=== PATIENT | male | born 1940 | race Caucasian/White ===

== ENCOUNTER 2022-06-04 13:01 | Inpatient (IN) | payer MEDICARE, OTHER ==
[~2022-06-04] VITALS: Ht 170.2 cm; Wt 55.3 kg
[2022-06-04 14:12] LABS: HEMATOCRIT. 36.8 % (42.0-52.0); HEMOGLOBIN. 12.3 g/dL (14.0-18.0); MEAN CORPUSCULAR HEMOGLOBIN 31.5 pg (28.0-32.0); MEAN CORPUSCULAR VOLUME 94.5 fL (80.0-94.0); MEAN PLATELET VOLUME 6.7 fl (7.4-10.4); PLATELET 237 x1000/uL (130-400); RED BLOOD CELL COUNT 3.89 mill/uL (4.7-6.1); RED CELL DISTRIBUTION WIDTH 16.2 % (11.6-14.6)
[2022-06-04 14:16] LABS: CHLORIDE 93 mEq/L (98-107)
[2022-06-04 16:26] LABS: PLATELET ESTIMATE NORMAL
[2022-06-04] MEDS ORDERED: GUAIFENESIN 200MG/10ML SUGAR FREE UDC PO PRN (17:45)
[2022-06-04] MEDS ORDERED: MAGNESIUM/ALUMINUM HYDROXIDE/SIMETHICONE 30ML UDC PO PRN (17:45)
[2022-06-04] MEDS ORDERED: ACETAMINOPHEN 325MG TABLET PO PRN (17:45)
[2022-06-04] MEDS ORDERED: ONDANSETRON HCL 4MG/2ML INJ IV PRN (17:45)
[2022-06-04] MEDS ORDERED: ACETAMINOPHEN 650MG/20.3ML UDC GT PRN (17:45)
[2022-06-04] MEDS ORDERED: CLONIDINE 0.1MG TABLET PO PRN (17:45)
[2022-06-04] MEDS ORDERED: DOCUSATE SODIUM 100MG CAPSULE PO PRN (17:45)
[2022-06-04] MEDS ORDERED: IPRATROPIUM/ALBUTEROL 0.5-3(2.5)MG/3ML NEB HHN PRN (17:45)
[2022-06-04] MEDS ORDERED: HYDROCODONE/ACETAMINOPHEN 5/325MG TABLET PO PRN (17:45)
[2022-06-04] MEDS ORDERED: NALOXONE HCL 0.4MG/ML VIAL IV PRN (19:00)
[2022-06-04 20:00] VITALS: BP 117/62
[2022-06-04] MEDS ORDERED: ENOXAPARIN 40MG/0.4ML SYR SUBCUT SCH (20:00)
[2022-06-04 21:13] VITALS: BP 117/83
[2022-06-04] MEDS ORDERED: IOHEXOL-350 100 ML BOTTLE ONE (21:24)
[2022-06-04 22:00] VITALS: BP 125/72
[2022-06-05] VITALS (11 sets, daily range): BP systolic 101–126; BP diastolic 52–65
[2022-06-05 00:10] LABS: CLARITY URINE CLEAR (CLEAR); COLOR URINE YELLOW (YELLOW); KETONES URINE NEGATIVE (NEGATIVE); LEUKOCYTE ESTERASE URINE NEGATIVE (NEGATIVE); NITRITE URINE NEGATIVE (NEGATIVE); OCCULT BLOOD URINE NEGATIVE (NEGATIVE); PROTEIN URINE TRACE (NEGATIVE); SPECIFIC GRAVITY URINE 1.064 (1.005-1.030)
[2022-06-05 06:38] LABS: HEMATOCRIT. 35.5 % (42.0-52.0); HEMOGLOBIN. 11.8 g/dL (14.0-18.0); MEAN CORPUSCULAR HEMOGLOBIN 31.5 pg (28.0-32.0); MEAN CORPUSCULAR VOLUME 94.8 fL (80.0-94.0); MEAN PLATELET VOLUME 6.8 fl (7.4-10.4); PLATELET 202 x1000/uL (130-400); RED BLOOD CELL COUNT 3.75 mill/uL (4.7-6.1); RED CELL DISTRIBUTION WIDTH 16.4 % (11.6-14.6)
[2022-06-05 06:45] LABS: CHLORIDE 92 mEq/L (98-107)
[2022-06-05 07:01] LABS: CREATINE KINASE 54 IU/L (39-308); HDL CHOLESTEROL 32 mg/dL (40-59); LDL CHOLESTEROL 121 mg/dL (5-100)
[2022-06-05] MEDS ORDERED: AMLO5TAB4 MT (07:43)
[2022-06-05] MEDS ORDERED: GABA-532 MT (07:46)
[2022-06-05] MEDS ORDERED: AMOX-405 MT (07:46)
[2022-06-05] MEDS ORDERED: APIX5TAB MT (07:46)
[2022-06-05 11:31] LABS: BG BASE EXCESS 11.3 mmol/L (-2.0-2.0); BG CARBOXYHEMOGLOBIN 0.1 % (0.5-1.5); BG DEOXYHEMOGLOBIN 4.5 % (0.0-5.0); BG HCO3 ACT 38.6 mmol/L (22.0-26.0); BG METHEMOGLOBIN 0.2 % (0.0-1.5); BG OXYGEN SATURATION 95.5 % (92.0-98.5); BG OXYHEMOGLOBIN 95.2 % (94.0-97.0); BG PCO2 63.6 mmHg (35.0-45.0); BG PH 7.401 (7.350-7.450); BG PO2 78.9 mmHg (75.0-100.0); BG SAMPLE SITE RIGHT RADIAL; BG VENT MODE MASK - BIPAP
[2022-06-05 13:37] LABS: INR 1.2; PROTHROMBIN TIME 12.4 sec (9.6-11.0)
[2022-06-05] MEDS: PIPERACILLIN/TAZOBACTAM 3.375 G in DEXTROSE 5% WATER 50 ML IV SCH ×2 (16:16→23:12)
[2022-06-05] MEDS: ENOXAPARIN 60MG/0.6ML SYR SUBCUT SCH (16:17)
[2022-06-05] MEDS: IPRATROPIUM/ALBUTEROL 0.5-3(2.5)MG/3ML NEB HHN SCH ×2 (16:32→20:54)
[2022-06-05 22:16] LABS: PLATELET ESTIMATE NORMAL
[2022-06-06] VITALS (12 sets, daily range): BP systolic 104–146; BP diastolic 47–125
[2022-06-06] MEDS: IPRATROPIUM/ALBUTEROL 0.5-3(2.5)MG/3ML NEB HHN SCH ×6 (00:39→21:08)
[2022-06-06 05:33] LABS: CHLORIDE 90 mEq/L (98-107)
[2022-06-06 06:16] LABS: HEMATOCRIT. 37.5 % (42.0-52.0); HEMOGLOBIN. 12.7 g/dL (14.0-18.0); MEAN CORPUSCULAR HEMOGLOBIN 31.9 pg (28.0-32.0); MEAN CORPUSCULAR VOLUME 94.2 fL (80.0-94.0); MEAN PLATELET VOLUME 6.9 fl (7.4-10.4); PLATELET 308 x1000/uL (130-400); RED BLOOD CELL COUNT 3.98 mill/uL (4.7-6.1); RED CELL DISTRIBUTION WIDTH 16.7 % (11.6-14.6)
[2022-06-06] MEDS: ENOXAPARIN 60MG/0.6ML SYR SUBCUT SCH ×2 (08:57→16:28)
[2022-06-06] MEDS: PIPERACILLIN/TAZOBACTAM 3.375 G in DEXTROSE 5% WATER 50 ML IV SCH ×3 (08:58→21:22)
[2022-06-06] MEDS ORDERED: PNEUMOCOCCAL 23-VAL P-SAC VAC 0.5 ML IM ONE (09:00)
[2022-06-06 22:39] LABS: PLATELET ESTIMATE NORMAL
[2022-06-07] VITALS (10 sets, daily range): BP systolic 91–145; BP diastolic 49–98
[2022-06-07] MEDS: PIPERACILLIN/TAZOBACTAM 3.375 G in DEXTROSE 5% WATER 50 ML IV SCH ×2 (06:00→14:50)
[2022-06-07] MEDS: IPRATROPIUM/ALBUTEROL 0.5-3(2.5)MG/3ML NEB HHN SCH ×3 (08:33→16:46)
[2022-06-07] MEDS: ENOXAPARIN 60MG/0.6ML SYR SUBCUT SCH ×2 (09:00→16:49)
[2022-06-07] MEDS ORDERED: MORPHINE SULFATE 2 MG/ML CPJ (NOT FOR IM USE) IV PRN (11:30)
[2022-06-07] MEDS ORDERED: NALOXONE HCL 0.4MG/ML VIAL IV PRN (11:30)
[2022-06-07 11:39] LABS: HEMATOCRIT. 34.5 % (42.0-52.0); HEMOGLOBIN. 11.4 g/dL (14.0-18.0); MEAN CORPUSCULAR HEMOGLOBIN 31.8 pg (28.0-32.0); MEAN CORPUSCULAR VOLUME 96.1 fL (80.0-94.0); PLATELET 173 x1000/uL (130-400); RED BLOOD CELL COUNT 3.58 mill/uL (4.7-6.1); RED CELL DISTRIBUTION WIDTH 16.6 % (11.6-14.6)
[2022-06-07] MEDS ORDERED: DIAZEPAM 5 MG/ML 2ML CPJ IM SCH (15:15)
[2022-06-07] MEDS ORDERED: DIAZEPAM 5 MG/ML 2ML CPJ IV NR (15:45)
[2022-06-07 16:40] LABS: CHLORIDE 95 mEq/L (98-107)
[2022-06-07 17:07] LABS: PLATELET ESTIMATE NORMAL
== END 2022-06-07 17:11 | DRG 180 ==
LOC: ER 13:01 → 5EST 16:59 → EDBEDREQSVC 17:03 → EDBEDREQ 17:03 → ENRESERV 17:30
PROVIDERS: ADMIT Family Medicine Adult Medicine; ATTEND Family Medicine Adult Medicine
PROC: 5A09457 Assistance with Respiratory Ventilation, 24-96 Consecutive Hours, Continuous Positive Airway Pressure (ICD-10-PCS; principal; 2022-06-04)
DX: C78.00 Secondary malignant neoplasm of unspecified lung (principal); E43 Unspecified severe protein-calorie malnutrition; J96.21 Acute and chronic respiratory failure with hypoxia; J18.9 Pneumonia, unspecified organism; E87.1 Hypo-osmolality and hyponatremia; C18.9 Malignant neoplasm of colon, unspecified; Z68.1 Body mass index [BMI] 19.9 or less, adult; Z20.822 Contact with and (suspected) exposure to COVID-19; Z66 Do not resuscitate; E87.8 Other disorders of electrolyte and fluid balance, not elsewhere classified; I10 Essential (primary) hypertension; G62.9 Polyneuropathy, unspecified; E78.5 Hyperlipidemia, unspecified; Z92.21 Personal history of antineoplastic chemotherapy; Z86.718 Personal history of other venous thrombosis and embolism; Z87.01 Personal history of pneumonia (recurrent); Z99.81 Dependence on supplemental oxygen
CPT/HCPCS: 36415; 36600; 71045; 71275; 80048; 80053; 80061; 81003; 82375; 82550; 82805; 83880; 84145; 84443; 84484; 85025; 85379; 87426; 90732; 93005; 93306; 93970; 93971; 94640; 94660; 97166; 99285; C9803; J1650; J2270; J2405; J2543; J7060; Q9967